=== PATIENT | female | born 1960 | race Caucasian/White ===

== ENCOUNTER 2017-12-18 14:41 | Emergency (ER) | payer OTHER ==
[~2017-12-18] VITALS: Ht 154.9 cm; Wt 102.5 kg
--- NOTE | 2017-12-18 16:00 | ED UPPER/LOWER EXTREMITY COMPL ---
History of Present Illness General Chief Complaint: Lower Extremity Injury Stated Complaint: PT STATES "PULLED SOMETHING BEHIND MY KNEE" Source: patient, old records Exam Limitations: no limitations Vital Signs & Intake/Output Vital Signs & Intake/Output Vital Signs Date Time Temp Pulse Resp B/P B/P Pulse O2 O2 Flow FiO2 Mean Ox Delivery Rate 12/18 1713 97.0 72 18 130/96 98 Room Air 12/18 1640 97 Room Air 12/18 1452 97.0 66 20 124/79 97 Room Air Allergies Coded Allergies: MDX - Erythromycin (ERYTHROMYCIN) (NAUSEA, VOMITING 06/03/11) Reconcile Medications No Known Home Medications Triage Note: PT STATES SHE WAS REPAIRING A DRAWER AND STOOD UP FROM THE STEP STOOL AND HER LEFT KNEE GAVE OUT. NOW SHE STATES IT FEELS VERY TIGHT FROM HER KNEE DOWN TO HER ANKLE. VERY DIFFICULT TO BEAR WEIGHT Triage Nurses Notes Reviewed? yes Onset: Abrupt Duration: hour(s): (3), constant Timing: recent history Severity: moderate Severity Numbers: 6 Pain/Injury Location: Left: Knee. Modifying Factors: Improves With: rest. Worsens With: movement. Associated Symptoms: none HPI: 57-year-old female presents to ER for evaluation complaining of left lateral knee pain that is radiating into her posterior thigh and down her leg since earlier this afternoon. The patient states that she was cleaning something was sitting on a stool when she got up to a standing position she began to have the pain in her knee. She did not take anything for her symptoms. She denies falling to the ground it is worse with bending her knee better with keeping it straight. No numbness or tingling no recent immobility no swelling no overlying rashes no fever no chills (Ramon Connor) Past History Travel History Traveled to [place] past 21 day No Medical History Any Pertinent Medical History? see below for history Cardiovascular: hypertension Endocrine: hypothyroidism Cancer(s): BREAST CANCER Surgical History Surgical History: knee replacement (RIGHT) Psychosocial History Who do you live with Spouse What is your primary language Luxembourger Creole Tobacco Use: Never used ETOH Use: occasional use Illicit Drug Use: denies illicit drug use Family History Hx Contributory? No (Ramon Connor) Review of Systems Review of Systems Constitutional: Reports: see HPI. Comments Review of systems: See HPI, All other systems negative. Constitutional, no chills no fever HEENT: no sore throat no congestion Cardiovascular: No chest pain Skin: no rashes, no change in skin Respiratory: No dyspnea no cough no sputum GI: No nausea no vomiting, Muscle skeletal: no back pain, no neck pain, Neurologic: , no headache Psych: No stress Heme/endocrine: No bruising Immunology: No lymphadenopathy (Ramon Connor) Physical Exam Physical Exam General Appearance: well developed/nourished, alert, awake Comments: Well-developed well-nourished patient in no apparent distress. HEENT: Atraumatic, extraocular motion intact Neck: Supple, FROM Back: FROM Cardiovascular: Regular rate and rhythms no murmurs rubs or gallops, Respiratory: Chest nontender.There were no bony deformities, no asymmetry. No respiratory distress. Patient speaking in full complete sentences. Breath sounds clear to auscultation bilaterally: NO W/R/R Upper Extremities: full range of motion Hip/Pelvis: Atraumatic/Stable. FROM. Knee: Atraumatic/stable. Limited range of motion secondary to pain. No joint swelling, no effusion. No laxity. Negative wilner/anterior drawer test.pain with ROM Leg: Atraumatic. Nontender. No edema, 5 out of 5 strength in the lower extremity, normal dorsiflexion of great toe bilaterally, gross sensation is intact, patellar tendon reflex 2+ bilaterally. Ankle/Foot: Atraumatic/stable. Skin intact. FROM. No swelling, no effusion. No laxity on exam Pulses: Normal/equal DP/PT pulses bilaterally. Brisk cap refill Neuro: awake, alert, and oriented to person, place and time. There were no obvious focal neurologic abnormalities. Skin: Warm & dry;No appreciable rash on exposed skin Psych: Mood affect normal, normal memory normal judgment. (Ramon Connor) Progress Differential Diagnosis: contusion, dislocation, fracture, sprain, tendon injury Plan of Care: Orders Procedure Date/time Status Durable Medical Equipment 12/18 1629 Active Patient with ibuprofen I discussed with the patient at length all of their results. Leg immobilizer applied. I had an extensive conversation regarding need for close follow up with their primary care physician/ORTHO this week as well as return precautions. I answered all of their questions, they feel comfortable with the plan and follow-up care. Diagnostic Imaging: Viewed by Me: Radiology Read. Discussed w/RAD: Radiology Read. Radiology Impression: PATIENT: MANJULA BANG PRESENT AGE : 57 PATIENT ACCOUNT NO: [id number] : 56 LOCATION: [facility] ORDERING PHYSICIAN: Ramon LIZ SERVICE DATE: 12/18/17 EXAM TYPE: RAD - XRY- KNEE COMPLETE LEFT EXAMINATION: XR KNEE, LEFT CLINICAL INFORMATION: Injury. Knee pain. COMPARISON: None TECHNIQUE: 5 views of the left knee. FINDINGS: There is no acute abnormality. No fracture. No dislocation. Degenerative joint disease. There is near rbwy-[id number]-nwaf contact of the femur and the tibia at the medial femoral tibial joint with marginal spurring of the bones. No bone erosion. No chondrocalcinosis. Minimal spur of the femur and patella at the patellofemoral joint. No joint effusion. IMPRESSION: There is no acute abnormality. Degenerative joint disease of knee. DICTATED BY: Trev Donnelly MD DATE/TIME DICTATED:12/18/171702 SURGICAL AIDES TEACHER:SHARYN DATE/TIME TRANSCRIBED:1702 CONFIDENTIAL, DO NOT COPY WITHOUT APPROPRIATE AUTHORIZATION. < Electronically signed in Other Vendor System> SIGNED BY: Trev Donnelly MD 1708 (Ramon Connor) Departure Departure Time of Disposition: 1701 Disposition: HOME OR SELF CARE Condition: Stable Clinical Impression Primary Impression: Knee sprain Referrals: Herson STROUD,Gabriella (PCP/Family) Additional Instructions: REST, ICE TYLENOL OR MOTRIN FOR PAIN. KEEP LEG ELEVATED. LEG IMMOBILIZER DISCUSSED. FOLLOW UP WITH YOUR ORTHOPEDIST DR YUAN ON THURSDAY.RETURN AT ANYTIME SOONER WITH ANY CONCERNS Departure Forms: Customer Survey General Discharge Information Prescriptions: Current Visit Scripts No Known Home Medications (Ramon Connor) PA/CIRCULATION MAN Co-Sign Statement Statement: ED Attending supervision documentation- [] I saw and evaluated the patient. I have also reviewed all the pertinent lab results and diagnostic results. I agree with the findings and the plan of care as documented in the PA's/CIRCULATION MAN's documentation. [X] I have reviewed the ED Record and agree with the PA's/CIRCULATION MAN's documentation. [] Additions or exceptions (if any) to the PAs/CIRCULATION MAN's note and plan are summarized below: [] (Oscar Gilmore DO
--- NOTE | 2017-12-18 17:09 | RADIOLOGY REPORT ---
EXAMINATION: XR KNEE, LEFT CLINICAL INFORMATION: Injury. Knee pain. COMPARISON: None TECHNIQUE: 5 views of the left knee. FINDINGS: There is no acute abnormality. No fracture. No dislocation. Degenerative joint disease. There is near [id number]-pv-[id number] contact of the femur and the tibia at the medial femoral tibial joint with marginal spurring of the bones. No bone erosion. No chondrocalcinosis. Minimal spur of the femur and patella at the patellofemoral joint. No joint effusion. IMPRESSION: There is no acute abnormality. Degenerative joint disease of knee.
[2017-12-18 17:13] VITALS: BP 130/96
== END 2017-12-18 17:38 ==
LOC: ERH 14:41
DX: S83.92XA Sprain of unspecified site of left knee, initial encounter (principal); X58.XXXA Exposure to other specified factors, initial encounter; Y92.9 Unspecified place or not applicable; Y93.9 Activity, unspecified
CPT/HCPCS: 73562-LT

== ENCOUNTER 2018-03-10 01:28 | Inpatient (IN) | payer OTHER ==
[~2018-03-10] VITALS: Ht 157.5 cm; Wt 101.6 kg
[~2018-03-10 01:28] MED LIST: FERROUS SULFAT325 M3 PO; LEVOTHYROXINE75 MCG PO; LOSARTAN POTASS50 M1 PO; STOOL SOFTENER100 M3 PO; VITAMIN B-121000 MC3 PO
--- NOTE | 2018-03-10 12:24 | Cons- Medical ---
See Addendum Livia Ann MD 03/10/18 1224: General Information and HPI Consulting Request Date of Consult: 03/10/18 Requested By: Constanza STROUD,Segun Kan Reason for Consult: Post OP Source of Information: patient, family, old records Exam Limitations: no limitations History of Present Illness: Ms. Ruiz is a pleasant 57-year-old female with past medical history of breast carcinoma, hypothyroidism, HTN, Rupture of C5, C6 and mild depressive disorder who was seen in PACU after she underwent a left knee arthroplasty. At the time of clinical introduction the patient appeared to be alert and oriented and was able to answer questions appropriately. She denied any issues and stated that she tolerated the procedure well. Reports good medication compliance and reports good follow-up for primary care with primary care physician Gabriella Bains MD. No recent change to any medications. She denied any fever, chills, nausea, vomiting. Allergies/Medications Allergies: Coded Allergies: erythromycin base (Intermediate, NAUSEA, VOMITING 03/09/18) Home Med List: Apixaban (Eliquis) 2.5 MG TABLET 2.5 MG PO BID ANTICOAGULATION Cyanocobalamin (Vitamin B-12) 1,000 MCG TABLET 1 TAB PO DAILY SUPPLEMENT ( Reported) Docusate Sodium (Stool Softener) 100 MG CAPSULE 100 MG PO PRN CONSTIPATION ( Reported) Docusate Sodium 100 MG CAPSULE 100 MG PO BID BOWEL REGIMEN Ferrous Sulfate 325 MG (65 MG IRON) TABLET 1 TAB PO D SUPPLEMENT (Reported) Levothyroxine Sodium 75 MCG TABLET 1 TAB PO D THYROID SUPPLEMENT (Reported) Losartan Potassium 50 MG TABLET 1 TAB PO DAILY BLOOD PRESSURE (Reported) Oxycodone HCl/Acetaminophen (Percocet 5-325 MG Tablet) 5 MG-325 MG TABLET 1-2 TAB PO Q4P PRN PAIN Current Medications: Current Medications Sig/Yulia Start time Last Medication Dose Route Stop Time Status Admin Acetaminophen 0 .STK-MED ONE 03/10 841 DC PO Acetaminophen 650 MG ONCE 03/10 NR PO 03/10 2359 Celecoxib 400 MG ONCE 03/10 NR PO 03/10 2359 Dexamethasone 0 .STK-MED ONE 03/10 840 DC .ROUTE Dexamethasone 10 MG ONCE 03/10 NR IV 03/10 2359 Gabapentin 0 .STK-MED ONE 03/10 841 DC PO Gabapentin 300 MG ONCE 04/11 0000 NR PO 03/10 2359 Oxycodone HCl 0 .STK-MED ONE 03/10 0841 DC PO Oxycodone HCl 10 MG ONCE 03/10 0000 NR PO 03/10 2359 Ropivacaine 500 ML ONCE ONE 03/10 1300 AC ON-Q Ball 1 BAG INJ 03/12 1459 Scopolamine HBr 0 .STK-MED ONE 03/10 0840 DC TOP Scopolamine HBr 1 PAT ONCE 03/10 0000 NR TOP 03/10 2359 Vancomycin HCl 1,500 MG ONCE 03/10 0000 NR Sodium Chloride 250 ML IV 03/10 2359 Review of Systems Review of Systems Constitutional: Reports: see HPI. Past History Medical History Blood Transfusion Hx: No Cardiovascular: hypertension Endocrine: hypothyroidism Cancer(s): BREAST CANCER Surgical History Surgical History: knee replacement (RIGHT) Family History Relations & Conditions If Any: MOTHER (Liver and Bone [place]). FATHER (Lung and Brain [place]). Psychosocial History Where Do You Live? Home Who Do You Live With? spouse Smoking Status: Never Smoked ETOH Use: heavy use, Daily use 2-3 units Illicit Drug Use: denies illicit drug use Functional Ability ADLs Independent: dressing, eating, toileting, bathing. Ambulation: independent IADLs Independent: shopping, housework, finances, food prep, telephone, transportation , medication admin. Exam & Diagnostic Data Last 24 Hrs of Vital Signs/I&O Blood pressure 129/69. Heart rate 60. Saturatin 99% on RA. Physical Exam General Appearance: well developed/nourished, no apparent distress, alert Head: atraumatic, normal appearance Eyes: Bilateral: PERRL, EOMI. Ears, Nose, Throat: normal pharynx, normal ENT inspection Respiratory: normal breath sounds, chest non-tender Cardiovascular: regular rate/rhythm Gastrointestinal: normal bowel sounds, soft, non-tender Back: normal inspection Last 24 Hrs of Labs/Phillip: Most recent labs white count 7.9. H&H 13.4 and 39.8. Platelets 347. Sodium 141. Potassium 2.9. BUNs 16. Assessment/Plan Assessment/Plan Ms. Ruiz is a pleasant 57-year-old female with past medical history of breast carcinoma, hypothyroidism, HTN, Rupture of C5, C6 and mild depressive disorder who was seen in PACU after she underwent a left knee arthroplasty. Post Op, she will be managed on the floor of the following conditions. Hypertension Currently BP stable Post op Plan: Continue Losartan 50 History of hypothyroidism Clinically Euthyroid Plan: Continue levothyroxine 75 mcg Physical therapy consultation in a.m. Adequate pain control. Incentive Spirometer DVT prophylaxis as per surgery Diet Heart healthy DVT prophylaxis Patient is a full code. Thank you for consult request we will continue follow with you. Consult Acknowledgment - Thank you for your consult request. David Cordon MD 03/10/18 7958: Assessment/Plan Consult Acknowledgment - Thank you for your consult request. Attending MD Review Statement Attending Statement Attending MD Statement: examined this patient, discuss w/resident/PA/SUPERVISOR CAB, agreed w/resident/PA/SUPERVISOR CAB, reviewed EMR data (avail), amended to note Attending Assessment/Plan: The patient is a 51 yo female with h/o HTN, breast ca, & hypothyroid who was admitted today after left TKR for OA. She had previously had right TKR in past. At the time of my exam she was in the PACU and comfortable. She denied any CP, dyspnea, or other complaints. Pain was under good control and VSS. Physical Exam: VS BP 129/69, P 50, PO 99% RA HEENT: eyes- PERRLA, EOMI gómez- moist mucosa Neck: supple, w/o bruit/JVD Chest: clear Cor: RRR nl S1, S2 w/o murm Abd: BS+, soft, NT Ext: s/p left TKR, no edema, pulses 2+ Neuro: alert & oriented x 3, non-focal exam Impression/Plan: #S/P Left TKR- for OA- doing well post operatively. Plan: As per orthopedics. #Essential HTN- BP good. Plan: Continue Losartan. #Hypothyroid- clinically euthyroid. Plan: Continue Levothyroxine.
--- NOTE | 2018-03-10 12:34 | Operative Report ---
Operative/Inv Procedure Report Surgery Date: 03/10/18 Name of Procedure: Left total knee arthroplasty Pre-Operative Diagnosis: Primary osteoarthritis left knee Post-Operative Diagnosis: Same Estimated Blood Loss: less than 50ml Surgeon/Gelatin Dynamite Packing Operator: Constanza STROUD,Segun LIZ Anesthesia: block IV Fluids: See anesthesia record Implants: Striker triathlon posterior stabilize knee. Size 4 femur, size 3 tibia, 9 mm polyethylene insert and a 27 patella Drains: None Specimens: Bone to pathology Tourniquet: 55 minutes Complications: None Condition: Stable Operative Indication: Patient is a 57-year-old female with severe osteoarthritis of the medial and patellofemoral compartments of the left knee. She has failed conservative treatment and wished to proceed with a total knee arthroplasty. The risks and benefits of the procedure were discussed with the patient detail in the office. A skilled set of hands was necessary provided by physician physicians assistant Flaquito Means aided with retraction and positioning and patient positioning and component assembly throughout the case. Operative/Procedure Note Note: Once informed consent was obtained and the correct limb was identified the patient brought to operative room placed on table supine position. After administration of spinal anesthesia the patient was placed supine and a Joe catheter was placed. A thigh tourniquet was then placed in the left lower from his prepped and draped usual sterile fashion. To begin the procedure a standard midline incision was made for total knee arthroscopy. Sharp dissection was carried down through the skin and subcutaneous tissue and fat. A medial parapatellar arthrotomy was performed and the patella was everted. Fat pad is removed from the patellar tendon. The patellar thickness was measured to be 22 mm a plan resection of 8 mm was performed. The patella was then sized to be symmetric 27 patellar button and the drill holes were made. The patella was then retracted laterally and protected. The knee was placed into flexion and Z retractors were placed to protect the medial collateral ligaments. Step drill was used to enter the intramedullary canal of the femur. Distal femoral cutting guide was placed with a planned cut of 10 mm of bone distally and 6 valgus cut. This distal femoral cut was made without, patient. The femur was then had a sizing block placed in the femur sized to be a size 4 femur. A size 4 4-in-1 cutting block was placed on the distal femur and the anterior, posterior, chamfer cuts were made. Once this was done out bone was passed off as specimen. The box cut was then placed for size 4 femur and box cut was made for posterior stabilized knee. At this point the medial and lateral meniscus were resected sharply with a #10 blade. A curved osteotome was then used to remove posterior osteophytes. A pickle fork retractor was placed in the tibia was translated anteriorly after the cruciate ligaments had been resected. An intramedullary canal was entered with a step drill. The tibial cutting guide was placed and a plan resection of 4 mm off the medial compartment the knee was performed without complication. Tibial bone was passed off as specimen. The tibia sized to be a size 3 tibial plate. This was left in place and a trial reduction was done with 4 femur and a 9 mm polyethylene insert. The patient full extension and 110 of flexion. The knee was stable to varus valgus stress at 0 and 60 with no mid flexion instability. The rotation of the tibial component was marked and the components removed. Tibial component was pinned in place and the keel cut was made. At this point all components removed and the cement was mixed on the back table. The knee was pulse lavaged and local anesthesia was infiltrated. The components were then cemented in place with the tibial component cemented first followed by the femoral component and the patellar button. All excess Alcaraz was removed with curettes. A 9 mm polyethylene trial insert was placed and knee was placed in extension while cement hardened. Once the cement was hardened the knee was again taken through range of motion found to be stable. A 9 mm polyethylene insert was opened and locked into the tibial tray without, patient. The tourniquet was then released and any bleeding was stopped with electrocautery. The arthrotomy was closed with #1 Vicryl interrupted sutures and the subcutaneous tissues were closed with #1 Vicryl and 2-0 Vicryl interrupted sutures. Skin was closed nenita and sterile dressings applied. Patient was awakened taken recovery in stable condition.
--- NOTE | 2018-03-10 13:51 | Admission Core Measures ---
Acute Coronary Syndrome (CM) ACS Core Measures Acute Coronary Syndrome Diagnosis No Congestive Heart Failure (NEW) CHF Core Measures Congestive Heart Failure Diagnosis No Cerebrovascular Accident (NEW) CVA Core Measures CVA/TIA Diagnosis No Venous Thromboembolism VTE Core [place]w (View Protocol) VTE Risk Factors Surgery No Mechanical VTE Prophylaxis d/t N/A MechProphylax Ordered No VTE Pharm Prophylaxis d/t NA PharmProphylax ordered Problem List As ranked by this Provider includes Assessment & Plan 1. Unilateral primary osteoarthritis, left knee HOME MEDS Home Med List Cyanocobalamin (Vitamin B-12) 1,000 MCG TABLET 1 TAB PO DAILY SUPPLEMENT ( Reported) Ferrous Sulfate 325 MG (65 MG IRON) TABLET 1 TAB PO D SUPPLEMENT (Reported) Levothyroxine Sodium 75 MCG TABLET 1 TAB PO D THYROID SUPPLEMENT (Reported) Losartan Potassium 50 MG TABLET 1 TAB PO DAILY BLOOD PRESSURE (Reported)
--- NOTE | 2018-03-10 13:54 | Patient Discharge Instructions ---
Discharge Instructions General Discharge Information You were seen/treated for: Left knee pain related to unilateral primary osteoarthritis You had these procedures: Left total knee replacement Watch for these problems: Increasing pain despite the use of pain medication Increasing redness, warmth or swelling Drainage of any type from incision Inability to bear weight on operative leg Persistent nausea and vomiting Fever greater than 101.5 degrees Do not soak the wound: Yes No bath, but you may shower: Yes Other wound care: Please keep wound clean and dry. No ointments or lotions of any type on or near incision at any time. No exceptions. Your dressing will be changed by your nurse on the second day after your surgery. Daily dry dressing changes are recommended each day thereafter. Do not soak your wound in a bath at any time until otherwise indicated by your surgeon. You may shower, please dry wound immediately after shower with a clean towel. Diet Continue normal diet: Yes Recommended Diet: Regular Activity Full Activity/No Limits: No Activity Self Limited: Yes Pounds, do NOT lift more than: 10 Acute Coronary Syndrome Inclusion Criteria At DC or during hospital stay patient has or had the following: ACS DIAGNOSIS No Discharge Core Measures Meds if any: Prescribed or Continued at Discharge Meds if any: NOT Prescribed or Continued at Discharge Congestive Heart Failure Inclusion Criteria At DC or during hospital stay patient has or had the following: CHF DIAGNOSIS No Discharge Core Measures Meds if any: Prescribed or Continued at Discharge Meds if any: NOT Prescribed or Continued at Discharge Cerebrovascular accident Inclusion Criteria At DC or during hospital stay patient has or had the following: CVA/TIA Diagnosis No Discharge Core Measures Meds if any: Prescribed or Continued at Discharge Meds if any: NOT Prescribed or Continued at Discharge Venous thromboembolism Inclusion Criteria VTE Diagnosis No VTE Type NONE VTE Confirmed by (Test) NONE Discharge Core Measures - Per Current guidelines, there needs to be overlap - treatment for the first 5 days of Warfarin therapy. - If discharged on Warfarin prior to 5 days of - overlap therapy, the patient will need to be - assessed for post discharge needs including - *Post discharge parental anticoagulation - *Warfarin and/or parental anticoagulation education - *Follow up date to check INR post discharge At least 5 days overlap therapy as Inpatient No Meds if any: Prescribed or Continued at Discharge Note: Overlap Therapy is Warfarin and Anticoagulant Meds if any: NOT Prescribed or Continued at Discharge
--- NOTE | 2018-03-10 13:57 | Surgical Discharge Summary ---
Visit Information Visit Dates Admission Date: 03/10/18 Discharge Date: 03/12/18 History of Present Illness Chief Complaint: Left knee pain related to unilateral primary osteoarthritis Medical History Cardiovascular: hypertension Endocrine: hypothyroidism Cancer(s): BREAST CANCER Surgical History Pertinent Surgical History: knee replacement (RIGHT) Psychosocial History Who Do You Live With? Spouse What is Your Primary Language? Syriac Creole Review of Systems: See H&P Hospital Course Course Attending Physician: Segun Apodaca MD Primary Care Physician: Gabriella Bains MD Hospital Course: Patient was admitted to the hospital for an elective total joint replacement. The procedure was tolerated well and patient was transferred to a general surgical floor. Diet was advanced and tolerated, and the patient voided spontaneously. The patient was evaluated and treated by physical therapy. At the time of hospital discharge, the vital signs were stable, neurovascular status was intact, and pain was controlled with the use of oral pain medications. Complications: none Allergies: Coded Allergies: erythromycin base (Intermediate, NAUSEA, VOMITING 03/09/18) Disposition Summary Disposition Principal Diagnosis: Left knee unilateral primary osteoarthritis Additional Diagnosis: None Discharge Disposition: home health services Discharge Instructions General Discharge Information Code Status: Full Code Patient's Diet: Regular, advance as tolerated Patient's Activity: WBAT Follow-Up Instructions/Appts: 2 week staple removal 6 week follow up with Medications at Discharge Discharge Medications: Continue taking these medications: Ferrous Sulfate (Ferrous Sulfate) 325 MG (65 MG IRON) TABLET 1 Tablet ORAL Every Day Levothyroxine Sodium (Levothyroxine Sodium) 75 MCG TABLET 1 Tablet ORAL Every Day Losartan Potassium (Losartan Potassium) 50 MG TABLET 1 Tablet ORAL DAILY Docusate Sodium (Stool Softener) 100 MG CAPSULE 100 Milligram ORAL Cyanocobalamin (Vitamin B-12) 1,000 MCG TABLET 1 Tablet ORAL DAILY Start taking the following new medications: Apixaban (Eliquis) 2.5 MG TABLET 2.5 Milligram ORAL TWICE DAILY Days = 30 No Refills Oxycodone HCl/Acetaminophen (Percocet 5-325 MG Tablet) 5 MG-325 MG TABLET 1-2 Tablet ORAL EVERY 4 HOURS NEEDED as needed for PAIN Qty = 30 No Refills Docusate Sodium (Docusate Sodium) 100 MG CAPSULE 100 Milligram ORAL TWICE DAILY Qty = 30 No Refills Copies To: Gabriella Bains MD
--- NOTE | 2018-03-10 16:04 | PN- Orthopedic ---
Subjective Subjective: Post op check. No complaints presently. Resting comfortably. Has been in PACU for prolonged period of time due to bed placement. Clinically has been stable. Denies chest pain, shortness of breath and difficulty breathing. Denies nausea and vomitting. Has taken in small amounts of po without difficulty, states she is not hungry yet though. Has matias cathter. Has yet to ambulate. Objective Vital Signs and I&Os HR: 60 BP: 128/85 O2: 97% on room air T: 97.1 RR: 20 breaths per minute Physical Exam: General: Alert and oriented x3, no acute distress Cards: RRR, s1s2 Pulm: CTA bilaterally ABD: non-tender, non-distended Extremities: Moves all extremities, distal sensation grossly intact. Skin warm and well perfused. DP pulses palpable bilaterally. Dressing dry and intact. On Q in place, no leak. No drain. Bilateral calves soft and non-tender Assessment/Plan Assessment/Plan 57 year old female, POD 0, s/p L TKR. PMH includes HTN, hypothyroid -IV fluids: D5 LR to continue through tonight, will dc tomorrow if taking in and tolerating adequate po -DVT ppx: Eliquis 2.5 bid to start tomorrow am -ABX ppx: Vancomycin for one additional dose -Bowel regimen: Scheduled colace and miralax, prn senna -Diet: Regular, advance as tolerated -Activity: OOB, wbat, knee immobilzer if unsteady, assist at all times when standing/ambulating -Dressing: To be changed post op day 2 -On Q to be kept in place until post op day 2 Will discuss plan of care with Dr. Apodaca Core Measures Venous Thromboembolism VTE Risk Factors Surgery No Mechanical VTE Prophylaxis d/t N/A MechProphylax Ordered No VTE Pharm Prophylaxis d/t NA PharmProphylax ordered
[2018-03-10 16:48] VITALS: BP 120/70
[2018-03-10 18:51] VITALS: BP 132/92
[2018-03-10 21:00] VITALS: BP 126/82
[2018-03-10 22:59] VITALS: BP 102/66
[2018-03-11 03:07] VITALS: BP 104/70
[2018-03-11 07:07] VITALS: BP 100/70
--- NOTE | 2018-03-11 07:14 | PN- Medicine Consult ---
See Addendum Assessment/PlanMedical Consult Assessment/Plan Assessment: As Below Plan: Ms. Ruiz is a pleasant 57-year-old female with past medical history of breast carcinoma, hypothyroidism, HTN, Rupture of C5, C6 and mild depressive disorder currently admitted on the [facility] medical service following left TKR (for OA). Hypertension Currently BP stable Post op. BP 100/70. Plan: Continue Losartan 50 History of hypothyroidism Clinically Euthyroid Plan: Continue levothyroxine 75 mcg Physical therapy consultation in a.m. Adequate pain control. Incentive Spirometer DVT prophylaxis on J[employer] Heart healthy DVT prophylaxis Patient is a full code. Thank you for consult request we will continue follow with you. Subjective Subjective: Ms Ruiz was seen and examined this morning. She is resting comfortably in bed. States that she feels well this morning and was able to get adequate rest stating that she has been asleep since 10 am yesterday. Denies any issues overnight. Currently pain-free although at times when she moves her left lower extremity she does expense pain. Pain is rated 8 out of 10 severity. Feels that pain is well-controlled. Denies any fever, chills, nausea, vomiting Review of Systems Constitutional: Reports: see HPI. Objective Last 24 Hrs of Vital Signs/I&O Vital Signs Date Time Temp Pulse Resp B/P B/P Pulse O2 O2 Flow FiO2 Mean Ox Delivery Rate 03/11 0707 97.8 55 20 100/70 93 Room Air 03/11 0307 98.2 66 20 104/70 91 Room Air 03/10 2340 98.5 03/10 2259 100.0 70 20 102/66 92 Room Air 03/10 2100 99.1 74 20 126/82 93 Room Air 03/10 1851 98.9 84 20 132/92 94 Room Air 03/10 1648 98.6 60 18 120/70 94 Room Air Intake & Output 03/11 0800 03/11 0000 03/10 1600 Intake Total 800 1300 Output Total 600 650 Balance 200 650 Intake, IV 600 600 Intake, Oral 200 700 Output, Urine 600 650 Patient 101.605 kg Weight Physical Exam General Appearance: well developed/nourished, no apparent distress, alert, awake Head: atraumatic Cardiovascular: regular rate/rhythm Respiratory: normal breath sounds, chest non-tender, no respiratory distress Abdomen: normal bowel sounds Back: normal inspection, normal range of motion Extremities: no edema, Right Knee Surgical Scar , Left knee wrapped in bandage. Neurologic/Psychiatric: no motor/sensory deficits, awake, alert Current Medications: Current Medications Sig/Yulia Start time Last Medication Dose Route Stop Time Status Admin Acetaminophen 0 .STK-MED ONE 03/10 0841 DC PO Acetaminophen 650 MG ONCE 03/10 0000 DC PO 03/10 2359 Al Hydroxide/Mg 30 ML Q6P PRN 03/10 164 AC Hydroxide PO Apixaban 2.5 MG BID 03/11 1000 AC PO Celecoxib 400 MG DAILY 03/11 1000 AC PO Celecoxib 400 MG ONCE 03/10 0000 DC PO 03/10 2359 Dexamethasone 0 .STK-MED ONE 03/10 0840 DC .ROUTE Dexamethasone 10 MG ONCE 03/10 0000 DC IV 03/10 2359 Dextrose/Lactated 1,000 ML Q13H 03/10 164 AC 03/11 Ringer's IV 0517 Docusate Sodium 100 MG BID 03/10 1230 AC 03/10 PO 2050 Fentanyl Citrate 200 MCG .STK-MED ONE 03/10 0953 DC IM 03/10 0954 Gabapentin 0 .STK-MED ONE 03/10 841 DC PO Gabapentin 300 MG ONCE 03/10 0000 DC PO 03/10 2359 Ketorolac 30 MG .STK-MED ONE 03/10 0954 DC Tromethamine IM 03/10 0955 Levothyroxine Sodium 0.075 MG DAILY AC 03/10 1230 AC 03/11 PO 0517 Losartan Potassium 50 MG DAILY 03/11 1000 AC PO Midazolam HCl 2 MG .STK-MED ONE 03/10 0953 DC IM 03/10 0954 Morphine Sulfate 2 MG Q3P PRN 03/10 164 AC IV Morphine Sulfate 4 MG Q3P PRN 03/10 164 AC IV Morphine Sulfate 10 MG .STK-MED ONE 03/10 0953 DC IV 03/10 0954 Ondansetron HCl 4 MG Q6P PRN 03/10 164 AC IV Oxycodone HCl 0 .STK-MED ONE 03/10 0841 DC PO Oxycodone HCl 10 MG ONCE 03/10 0000 DC PO 03/10 2359 Oxycodone/ 1 TAB Q4P PRN 03/10 164 AC Acetaminophen PO Oxycodone/ 2 TAB Q4P PRN 03/10 1645 AC Acetaminophen PO Polyethylene Glycol 17 GM DAILY 03/10 1230 AC PO Ropivacaine 500 ML ONCE ONE 03/10 1300 AC ON-Q Ball 1 BAG INJ 03/12 1459 Scopolamine HBr 0 .STK-MED ONE 03/10 0840 DC TOP Scopolamine HBr 1 PAT ONCE 03/10 0000 DC TOP 03/10 2359 Senna/Docusate Sodium 2 TAB AT BEDTIME NEED.. 03/10 1645 AC PO Tranexamic Acid 2,000 MG .STK-MED ONE 03/10 0952 DC IV 03/10 0953 Vancomycin HCl 1,500 MG ONCE ONE 03/10 2200 DC 03/10 Dextrose/Water 250 ML IV 03/10 2329 2152 Vancomycin HCl 1,500 MG ONCE 03/10 0000 DC Sodium Chloride 250 ML IV 03/10 2359 Results Last 24 Hrs Lab/Phillip Results: Microbiology 03/10 1030 URINE ROUT: Urine Culture - RECD
--- NOTE | 2018-03-11 09:30 | PN- Orthopedic ---
Subjective Subjective: Minimal pain, no other complaints, she is feeling well, no acute events overnight Objective Vital Signs and I&Os Vital Signs Date Time Temp Pulse Resp B/P B/P Pulse O2 O2 Flow FiO2 Mean Ox Delivery Rate 03/11 0707 97.8 55 20 100/70 93 Room Air 03/11 0307 98.2 66 20 104/70 91 Room Air 03/10 2340 98.5 03/10 2259 100.0 70 20 102/66 92 Room Air 03/10 2100 99.1 74 20 126/82 93 Room Air 03/10 1851 98.9 84 20 132/92 94 Room Air 03/10 1648 98.6 60 18 120/70 94 Room Air Intake & Output 03/11 1600 03/11 0800 03/11 0000 03/10 1600 03/10 0800 03/10 0000 Intake Total 800 1300 Output Total 600 650 Balance 200 650 Intake, IV 600 600 Intake, Oral 200 700 Output, Urine 600 650 Patient 224 lb Weight Physical Exam: Well-developed well-nourished no apparent distress. HEENT: Atraumatic, extraocular motion intact Neck: Supple, no lymphadenopathy Respiratory: No respiratory distress Extremities: No edema LEFT lower extremity dressing in place, On Q in place Range of motion is 0-60. Compression wrap in place. ALPS in place Neurovascularly intact distally Bilateral calves are supple, nontender. Neuro: Alert and oriented x3 Psych: Mood affect normal, normal memory normal judgment. Skin: Warm and dry, no rash on exposed skin Results Last 48 Hours of Labs: Laboratory Tests 03/11 0815 Chemistry Sodium (137 - 145 mmol/L) 139 Potassium (3.5 - 5.1 mmol/L) 4.1 Chloride (98 - 107 mmol/L) 105 Carbon Dioxide (22 - 30 mmol/L) 22 Anion Gap (5 - 16) 11 BUN (7 - 17 mg/dL) 15 Creatinine (0.5 - 1.0 mg/dL) 0.6 Estimated GFR (>60 ml/min) > 60 BUN/Creatinine Ratio (7 - 25 %) 25.0 Assessment/Plan Assessment/Plan Postop day #1 status post left total knee arthroplasty Perioperative antibiotics. Pain medication as needed. Out of bed Physical therapy, weightbearing as tolerated DC IV fluids DC Joe catheter Regular diet Follow a.m. labs Eliquis for DVT prophylaxis ALPS for DVT prophylaxis Regular home meds Dressing change postop day 2 Possible discharge home in 1-2 days with VNA services Core Measures Venous Thromboembolism VTE Risk Factors Surgery No Mechanical VTE Prophylaxis d/t N/A MechProphylax Ordered No VTE Pharm Prophylaxis d/t NA PharmProphylax ordered
[2018-03-11 11:05] LABS: ABSOLUTE BASOPHIL COUNT 0 /CUMM (0.0-0.2); ABSOLUTE EOSINOPHIL COUNT 0 /CUMM (0.0-0.7); ABSOLUTE GRANULOCYTE CT 10.9 /CUMM (1.4-6.5); ABSOLUTE LYMPH COUNT 1.1 /CUMM (1.2-3.4); ABSOLUTE MONOCYTE COUNT 1.4 /CUMM (0.10-0.60); BASOPHIL % 0.1 % (0.0-2.0); EOSINOPHIL % 0 % (0-5); HEMATOCRIT 34.8 % (37-47); MEAN CORPUSCULAR HGB CONC 33.8 G/DL (33.0-37.0); MEAN CORPUSCULAR VOLUME 91.5 FL (81.0-99.0); MEAN PLATELET VOLUME 7.4 FL (7.4-10.4); PLATELET COUNT 340 /CUMM (130-400); RBC DISTRIBUTION WIDTH 13.7 % (11.5-14.5); WHITE BLOOD CELL COUNT 13.4 /CUMM (4.8-10.8)
[2018-03-11 11:12] VITALS: BP 118/74
[2018-03-11 11:12] LABS: GRANULOCYTE % 80.9 % (42.2-75.2)
[2018-03-11 13:51] VITALS: BP 130/80
[2018-03-11 21:48] VITALS: BP 120/68
[2018-03-12 06:15] VITALS: BP 166/80
[2018-03-12 07:01] VITALS: BP 140/80
[2018-03-12 07:18] VITALS: BP 140/80
--- NOTE | 2018-03-12 07:45 | PN- Orthopedic ---
Subjective Subjective: No acute events overnight. Pain well controlled. Tolerating diet, voiding spontaneously. Last bowel movement 2 days ago, + flatus. PT ambulating with patient. Anticipates discharge home today. Objective Vital Signs and I&Os Vital Signs Date Time Temp Pulse Resp B/P B/P Pulse O2 O2 Flow FiO2 Mean Ox Delivery Rate 03/12 0718 98.0 61 20 140/80 95 Room Air 03/12 0615 98.2 88 20 166/80 95 Room Air 03/11 2148 98.1 60 20 120/68 96 Room Air 03/11 1351 98.3 93 20 130/80 95 Room Air 03/11 1112 98.0 64 18 118/74 96 Room Air Intake & Output 03/12 0800 03/12 0000 03/11 1600 03/11 0800 03/11 0000 03/10 1600 Intake Total 800 329 399 4800 Output Total 100 600 650 Balance 800 500 200 650 Intake, IV 600 600 Intake, Oral 800 600 200 700 Output, Urine 100 600 650 Patient 224 lb Weight Physical Exam: GENERAL: CAOx3, NAD. Lungs: Normal work of breathing Extremities: Left lower extremity postoperative dressing removed. Seda intact. No erythema. 5/5 plantar/dorsiflexion bilaterally. 2+ DP to LLE. SCDs in place. Mild edema to LLE, stable. Warm and well perfused, sensation intact. Results Last 48 Hours of Labs: Laboratory Tests 03/11 03/11 1030 0815 Chemistry Sodium (137 - 145 mmol/L) 139 Potassium (3.5 - 5.1 mmol/L) 4.1 Chloride (98 - 107 mmol/L) 105 Carbon Dioxide (22 - 30 mmol/L) 22 Anion Gap (5 - 16) 11 BUN (7 - 17 mg/dL) 15 Creatinine (0.5 - 1.0 mg/dL) 0.6 Estimated GFR (>60 ml/min) > 60 BUN/Creatinine Ratio (7 - 25 %) 25.0 Hematology CBC w Diff NO MAN DIFF REQ WBC (4.8 - 10.8 /CUMM) 13.4 H RBC (4.20 - 5.40 /CUMM) 3.80 L Hgb (12.0 - 16.0 G/DL) 11.8 L Hct (37 - 47 %) 34.8 L MCV (81.0 - 99.0 FL) 91.5 MCH (27.0 - 31.0 PG) 31.0 MCHC (33.0 - 37.0 G/DL) 33.8 RDW (11.5 - 14.5 %) 13.7 Plt Count (130 - 400 /CUMM) 340 MPV (7.4 - 10.4 FL) 7.4 Gran % (42.2 - 75.2 %) 80.9 H Lymphocytes % (20.5 - 51.1 %) 8.5 L Monocytes % (1.7 - 9.3 %) 10.5 H Eosinophils % (0 - 5 %) 0 Basophils % (0.0 - 2.0 %) 0.1 Absolute Granulocytes (1.4 - 6.5 /CUMM) 10.9 H Absolute Lymphocytes (1.2 - 3.4 /CUMM) 1.1 L Absolute Monocytes (0.10 - 0.60 /CUMM) 1.4 H Absolute Eosinophils (0.0 - 0.7 /CUMM) 0 Absolute Basophils (0.0 - 0.2 /CUMM) 0 Assessment/Plan Assessment/Plan This is a 57 year old female status post left total knee arthroplasty on 2017, postoperative day 2. Dressing changed at bedside. - Pain control: discontinue IV morphine - Regular diet - Strict I&Os - PT: WBAT, cleared stairs with PT - DVT prophylaxis: Eliquis - Dispo: Home likely today Core Measures Venous Thromboembolism VTE Risk Factors Surgery No Mechanical VTE Prophylaxis d/t N/A MechProphylax Ordered No VTE Pharm Prophylaxis d/t NA PharmProphylax ordered Regular home meds Dressing change postop day 2 Possible discharge home in 1-2 days with VNA services Core Measures Venous Thromboembolism VTE Risk Factors Surgery No Mechanical VTE Prophylaxis d/t N/A MechProphylax Ordered No VTE Pharm Prophylaxis d/t NA PharmProphylax ordered
[2018-03-12] MEDS ORDERED: DOCUSATE SODIU100 M3 PO (08:59)
[2018-03-12] MEDS ORDERED: ELIQUIS2.5 M1 PO (08:59)
[2018-03-12] MEDS ORDERED: PERCOCET 5-3251 EACH PO (08:59)
--- NOTE | 2018-03-12 09:15 | PN- Medicine Consult ---
See Addendum Assessment/PlanMedical Consult Assessment/Plan Assessment: Ms. Ruiz is a pleasant 57-year-old female with past medical history of breast carcinoma, hypothyroidism, HTN, Rupture of C5, C6 and mild depressive disorder currently admitted on the Gen. medical floor following left TKR (for OA). Plan: Left Knee TKR Follow up on X-Ray Hypertension Currently BP stable Post op. BP 118/70. Plan: Continue Losartan 50 History of hypothyroidism Clinically Euthyroid Plan: Continue levothyroxine 75 mcg Adequate pain control. Incentive Spirometer DVT prophylaxis on eliquis Diet Heart healthy Subjective Subjective: Mr. Ruiz was seen and examined this morning. Resting comfortably in bed. She was actually on the way to x-ray. She had no issues overnight and stated that she feels better. Pain was better controlled. Has not been able to ambulate although feels that she would be willing to later on. She denied any fever, chills, nausea, vomiting. Review of Systems Constitutional: Reports: see HPI. Objective Last 24 Hrs of Vital Signs/I&O Vital Signs Date Time Temp Pulse Resp B/P B/P Pulse O2 O2 Flow FiO2 Mean Ox Delivery Rate 03/12 0957 97.8 65 20 118/70 96 Room Air 03/12 0830 61 140/80 03/12 0718 98.0 61 20 140/80 95 Room Air 03/12 0615 98.2 88 20 166/80 95 Room Air 03/11 2148 98.1 60 20 120/68 96 Room Air Intake & Output 03/12 1600 03/12 0800 03/12 0000 Intake Total 480 800 Output Total Balance 480 800 Intake, Oral 480 800 Physical Exam General Appearance: well developed/nourished, no apparent distress, alert Head: atraumatic Extremities: no edema Current Medications: Current Medications Sig/Yulia Start time Last Medication Dose Route Stop Time Status Admin Al Hydroxide/Mg 30 ML Q6P PRN 03/10 1645 DCD Hydroxide PO Apixaban 2.5 MG BID 03/11 1000 DCD 03/12 PO 0830 Celecoxib 400 MG DAILY 03/11 1000 DCD 03/12 PO 0830 Docusate Sodium 100 MG BID 03/10 1230 DCD 03/12 PO 0830 Levothyroxine Sodium 0.075 MG DAILY AC 03/10 1230 DCD 04/13 PO 0608 Losartan Potassium 50 MG DAILY 03/11 1000 DCD 03/12 PO 0830 Morphine Sulfate 2 MG Q3P PRN 03/10 1645 DC IV Morphine Sulfate 4 MG Q3P PRN 03/10 1645 DC 03/12 IV 0156 Ondansetron HCl 4 MG Q6P PRN 03/10 1645 DCD IV Oxycodone/ 1 TAB Q4P PRN 03/10 1645 DCD Acetaminophen PO Oxycodone/ 2 TAB Q4P PRN 03/10 1645 DCD 03/12 Acetaminophen PO 1134 Polyethylene Glycol 17 GM DAILY 03/10 1230 DCD 03/12 PO 0830 Ropivacaine 500 ML ONCE ONE 03/10 1300 DCD ON-Q Ball 1 BAG INJ 03/12 1459 Senna/Docusate Sodium 2 TAB AT BEDTIME NEED.. 03/10 1645 DCD 03/11 PO 2140 Results Last 24 Hrs Lab/Phillip Results: Stable
[2018-03-12 09:57] VITALS: BP 118/70
--- NOTE | 2018-03-12 12:16 | RADIOLOGY REPORT ---
EXAMINATION: XR KNEE, LEFT CLINICAL INFORMATION: Status post left total knee arthroplasty. COMPARISON: Left knee done on 12/18/2017. TECHNIQUE: 2 views of the left knee. FINDINGS: Prosthetic components of the left total knee arthroplasty are appropriately aligned. No periprosthetic fracture. Gas from recent surgery is present in the joint and surrounding soft tissues. A joint effusion is present. IMPRESSION: Appropriate alignment of the left total knee arthroplasty without evidence of complications.
== END 2018-03-12 13:04 | disposition home health service (06) | DRG 470 ==
LOC: SDA 01:28 → EDBEDREQ 13:34 → ENRESERV 14:49 → ENTRNSPT 15:59 → EDTRNSPT 16:04 → EDTRNSPTSTS 16:22 → 2NA 16:33 → CMPTRNSPT 17:08 → ENPENDDIS 03-12 09:10 → ENTRNSPT 03-12 12:56 → EDTRNSPT 03-12 12:57 → EDTRNSPTSTS 03-12 12:57 → CMPTRNSPT 03-12 13:04 → 2NA 03-12 13:04
PROVIDERS: Physician Assistant Surgical
PROC: 3E0T3BZ Introduction of Anesthetic Agent into Peripheral Nerves and Plexi, Percutaneous Approach (ICD-10-PCS; principal; 2018-03-10)
PROC: 0SRD0J9 Replacement of Left Knee Joint with Synthetic Substitute, Cemented, Open Approach (ICD-10-PCS; principal; 2018-03-10)
DX: M17.12 Unilateral primary osteoarthritis, left knee (principal); E03.9 Hypothyroidism, unspecified; F32.9 Major depressive disorder, single episode, unspecified; Z85.3 Personal history of malignant neoplasm of breast; Z79.01 Long term (current) use of anticoagulants; Z79.891 Long term (current) use of opiate analgesic; Z88.1 Allergy status to other antibiotic agents; Z96.651 Presence of right artificial knee joint
CPT/HCPCS: 2NASP; 36415; 36592; 73560-LT; 82436; 87086; 88305; 97110-GO; 97116-GO; 97161-GP; 97530-GO; C1713; J1100; J1885; J2795; J3370; J7040; J7060